=== PATIENT | male | born 1965 | race Caucasian/White ===

== ENCOUNTER 2020-11-05 23:38 | Emergency (ER) | payer MEDICAID ==
[~2020-11-05] VITALS: Ht 165.1 cm; Wt 83.9 kg
[2020-11-05 23:45] VITALS: BP_SYST 153
== END 2020-11-06 01:00 | disposition left against medical advice (07) ==
LOC: SED 23:38
DX: K13.79 Other lesions of oral mucosa (principal); Z53.21 Procedure and treatment not carried out due to patient leaving prior to being seen by health care provider

== ENCOUNTER 2020-12-18 15:03 | Emergency (ER) | payer MEDICAID ==
[~2020-12-18] VITALS: Ht 167.6 cm; Wt 72.6 kg
[2020-12-18 15:23] VITALS: BP_SYST 151
[2020-12-18] MEDS ORDERED: ANT30 PO (16:00)
[2020-12-18] MEDS ORDERED: OMEP20CA15 PO (16:00)
[2020-12-18] MEDS ORDERED: AMOX-423 PO (16:00)
[2020-12-18] MEDS: MAG HYDROX/AL HYDROX/SIMETH 30 ML, DICYCLOMINE HCL 20 MG, LIDOCAINE VISCOUS 2% 15ML (PO... PO ONE ×3 (16:09)
[2020-12-18 16:43] VITALS: BP_SYST 151
== END 2020-12-18 16:43 | disposition home or self-care (01) ==
LOC: SED 15:03
DX: L03.315 Cellulitis of perineum (principal); K20.90 Esophagitis, unspecified without bleeding; K21.9 Gastro-esophageal reflux disease without esophagitis; F17.210 Nicotine dependence, cigarettes, uncomplicated; I10 Essential (primary) hypertension; Z79.899 Other long term (current) drug therapy
CPT/HCPCS: 99283; J2001

== ENCOUNTER 2020-12-26 21:38 | Emergency (ER) | payer MEDICAID ==
[~2020-12-26] VITALS: Ht 170.2 cm; Wt 85.7 kg
[~2020-12-26 21:38] MED LIST: AMOX-423 PO; ANT30 PO; OMEP20CA15 PO
[2020-12-26 21:51] VITALS: BP_SYST 139
[2020-12-27 00:01] VITALS: BP_SYST 148
[2020-12-27] MEDS ORDERED: AMOX-426 PO (00:34)
[2020-12-27] MEDS ORDERED: PRED20TA PO (00:34)
== END 2020-12-27 01:05 | disposition home or self-care (01) ==
LOC: SED 21:38
DX: J31.2 Chronic pharyngitis (principal); L02.31 Cutaneous abscess of buttock; Z79.899 Other long term (current) drug therapy
CPT/HCPCS: 70360-TC; 87070-TC; 99283

== ENCOUNTER 2020-12-31 23:42 | Emergency (ER) | payer MEDICAID ==
[~2020-12-31] VITALS: Ht 170.2 cm; Wt 86.2 kg
[~2020-12-31 23:42] MED LIST changes: +AMOX-426 PO; +PRED20TA PO
[2020-12-31 23:50] VITALS: BP_SYST 150
[2021-01-01] MEDS ORDERED: DOCU-144 PO (00:15)
[2021-01-01 00:28] VITALS: BP_SYST 148
== END 2021-01-01 00:28 | disposition home or self-care (01) ==
LOC: SED 23:42
DX: K11.20 Sialoadenitis, unspecified (principal); K59.00 Constipation, unspecified; Z79.899 Other long term (current) drug therapy
CPT/HCPCS: 99282

== ENCOUNTER 2021-02-07 15:34 | Emergency (ER) | payer MEDICAID ==
[~2021-02-07] VITALS: Ht 170.2 cm; Wt 81.6 kg
[~2021-02-07 15:34] MED LIST changes: +DOCU-144 PO
[2021-02-07 15:35] VITALS: BP_SYST 133
[2021-02-07] MEDS ORDERED: CEPH250C PO (16:44)
[2021-02-07] MEDS ORDERED: ACET325T53 PO (16:44)
[2021-02-07] MEDS ORDERED: SULF1TAB48 PO (16:44)
[2021-02-07] MEDS ORDERED: cefTRIAXone 1 GM in LIDOCAINE 1%, 20 ML MDV 2.1 ML IM ONE (16:45)
[2021-02-07 18:37] VITALS: BP_SYST 134
== END 2021-02-07 18:38 | disposition home or self-care (01) ==
LOC: SED 15:34
DX: L02.31 Cutaneous abscess of buttock (principal); Z79.899 Other long term (current) drug therapy
CPT/HCPCS: 96372; 99283; J0696; J2001

== ENCOUNTER 2021-04-02 23:29 | Emergency (ER) | payer MEDICAID ==
[~2021-04-02] VITALS: Ht 170.2 cm; Wt 83.9 kg
[~2021-04-02 23:29] MED LIST changes: +ACET325T53 PO; +CEPH250C PO; +SULF1TAB48 PO
[2021-04-02 23:49] VITALS: BP_SYST 148
--- NOTE | 2021-04-03 00:50 | NUR ---
Patient to ER bed 7 to gown for evaluation. Side rails up. Report given to self. Received patient to Er w/ c/o "flies and worms coming out of his mouth ongoing since Thursday". Patient states that everytime he eats he is spitting things out of his mouth. Seen at local clinic and dentist but was informed everything is fine. Introduced self to patient, positioned for comfort continue to monitor.
--- NOTE | 2021-04-03 01:30 | NUR ---
LENORA Glover at bedside examining patient.
[2021-04-03] MEDS ORDERED: OLANZapine 10 MG TAB.RAPDIS PO ONE (02:30)
--- NOTE | 2021-04-03 02:30 | NUR ---
Patient given written and verbal discharge instructions and verbalizes understanding. ER MD discussed with patient the results and treatment provided. Patient in stable condition. ID arm band removed. Patient educated on pain management and to follow up with PMD. Pain Scale 0. Opportunity for questions provided and answered. Medication side effect fact sheet provided.
== END 2021-04-03 03:01 | disposition left against medical advice (07) ==
LOC: SED 23:29
DX: F45.8 Other somatoform disorders (principal); Z79.899 Other long term (current) drug therapy
CPT/HCPCS: 71045; 99283